=== PATIENT | female | born 1940 | race Caucasian/White ===

== ENCOUNTER 2022-12-29 01:23 | Inpatient (IN) | payer MEDICARE, SELFPAY ==
[2022-12-29] VITALS (14 sets, daily range): BP systolic 102–184; BP diastolic 54–86; PULSE 74–107; RESP 13–26; TEMP 36.3–37.3; O2SAT 94–100; BMI 25.3
--- NOTE | 2022-12-29 05:44 | PM.HP.1 ---
History of Present Illness History of Present Illness Date Patient Seen: 12/29/22 Chief complaint: HYDRONEPHROSIS Narrative: 82 y/o with PMH of COPD, GERD, HTN, Depression, transferred from another hospital with obstructing Lt ureteral stone, Lt [place]/Ureteronephrosis, to be seen by urologist. Complaining on nausea, abdominal pain. [facility] Medical History (Updated 12/29/22 @ 05:58 by Keith Mendez MD) COPD (chronic obstructive pulmonary disease) Depression GERD (gastroesophageal reflux disease) HTN (hypertension) Social History household members: significant other Smoking Status: Former smoker alcohol intake: current Comment: Unobtainable, hard of hearing Meds Home Medications and Allergies Home Medications Medication Instructions Recorded Confirmed Type albuterol sulfate 90 mcg/actuation 2 puff inhalation Q4H PRN 12/29/22 12/29/22 History aerosol inhaler (ProAir HFA) wheezing, shortness of breath aspirin 325 mg capsule 325 mg PO DAILY 12/29/22 12/29/22 History ipratropium 0.5 mg-albuterol 3 mg ml inhalation Q6H PRN Shortness Of 12/29/22 History (2.5 mg base)/3 mL nebulization Breath soln lisinopril 20 mg tablet 20 mg PO DAILY 12/29/22 12/29/22 History omeprazole 20 mg capsule,delayed 20 mg PO DAILY 12/29/22 12/29/22 History release venlafaxine 75 mg tablet 37.5 mg PO DAILY 12/29/22 12/29/22 History Allergies Allergy/AdvReac Type Severity Reaction Status Date / Time cephalexin [From Keflex] Allergy Unknown Verified 12/29/22 05:19 morphine Allergy Unknown Verified 12/29/22 05:19 oxycodone Allergy Unknown Verified 12/29/22 05:19 Sulfa (Sulfonamide Allergy Unknown Verified 12/29/22 05:19 Antibiotics) Review of Systems Review of Systems Narrative: Patient was only able to confirm that she has abdominal pain and nausea Severe hearing loss, possibly adverse effects of narcotics Exam Vital Signs (past 8 hours): - 12/29/22 02:59 Oxygen Delivery Method Nasal Cannula Oxygen Delivery Method Nasal Cannula Const Other: in no distress HENMT Other: hearing loss Resp Other: CTA Cardio Other: RRR Neuro Other: w/o focal motor deficits Extrem Other: w/o swelling Psych Other: confused Assessment & Plan Assessment and plan (1) Ureteral stone with hydronephrosis: Status: Acute Plan: - IVFs, Flomax - 4 mm, Lt UPJ with hydronephrosis - BMP and CBC in transferring hospital WNR with negative UA - NPO for potential procedure with urology, reason for transfer, will be seen by Dr Grant (2) HTN (hypertension): Status: Acute Plan: Lisinopril (3) COPD (chronic obstructive pulmonary disease): Status: Acute Plan: Albuterol, Advair (4) GERD (gastroesophageal reflux disease): Status: Acute Plan: omeprazole (5) Depression: Status: Acute Plan: Effexor
[2022-12-29] MEDS: HYDROMORPHONE 0.5 MG INJ IV (06:05)
[2022-12-29] MEDS: DEXTROSE 5%-0.45% NS 1,000 ML 75 ML IV (06:05)
[2022-12-29] MEDS: ONDANSETRON 4 MG/2 ML INJ IV (06:05)
--- NOTE | 2022-12-29 06:17 | PC.ADMIT ---
Addendum entered by Treva Bello R.N. 12/29/22 06:28: Received orders from hospitalist. Patient on D5 1/2 NS @ 75. NPO. Zofran and dilauded given for pain/ nausea. Zapata catheter placed per order. Original Note: [address] Admission Note: Patient admitted to AC unit at 03:40 from [facility]. Patient transported via BLS and transferred to bed using a slideboard. Patient A/O x 4, able to make needs known. Upon arrival patient was dry heaving with slight amount of emesis, reporting 8/10 pain. Patient at 97% on 2 L oxygen via nasal cannula, uses home oxygen @ 2L per baseline. Bed in low and locked position, call light within reach and bed alarm on. The patient,Tomasa Mello,82 y/o, was given written information regarding hospital policies, unit procedures and contact persons. Patient's smoking status: Former smoker. Vital Signs - 8 hr 12/29/22 02:59 Oxygen Delivery Method Nasal Cannula
--- NOTE | 2022-12-29 07:19 | P.HP_ITS ---
History of Present Illness History of Present Illness Date Patient Seen: 12/29/22 Chief complaint: HYDRONEPHROSIS Narrative: 82 y/o with PMH of COPD, GERD, HTN, Depression, transferred from another hospital with obstructing Lt ureteral stone, Lt [place]/Ureteronephrosis, to be seen by urologist. Complaining on nausea, abdominal pain. [facility] Medical History (Updated 12/29/22 @ 05:58 by Keith Mendez MD) COPD (chronic obstructive pulmonary disease) Depression GERD (gastroesophageal reflux disease) HTN (hypertension) Social History household members: significant other Smoking Status: Former smoker alcohol intake: current Meds Home Medications and Allergies Home Medications Medication Instructions Recorded Confirmed Type albuterol sulfate 90 mcg/actuation 2 puff inhalation Q4H PRN 12/29/22 12/29/22 History aerosol inhaler (ProAir HFA) wheezing, shortness of breath aspirin 325 mg capsule 325 mg PO DAILY 12/29/22 12/29/22 History ipratropium 0.5 mg-albuterol 3 mg 0.5 ml inhalation Q6H PRN 12/29/22 12/29/22 History (2.5 mg base)/3 mL nebulization Shortness Of Breath soln lisinopril 20 mg tablet 20 mg PO DAILY 12/29/22 12/29/22 History omeprazole 20 mg capsule,delayed 20 mg PO DAILY 12/29/22 12/29/22 History release venlafaxine 75 mg tablet 37.5 mg PO DAILY 12/29/22 12/29/22 History Allergies Allergy/AdvReac Type Severity Reaction Status Date / Time cephalexin [From Keflex] Allergy Unknown Verified 12/29/22 05:19 morphine Allergy Unknown Verified 12/29/22 05:19 oxycodone Allergy Unknown Verified 12/29/22 05:19 Sulfa (Sulfonamide Allergy Unknown Verified 12/29/22 05:19 Antibiotics) Review of Systems Review of Systems Narrative: All other systems reviewed with the patient and are negative unless otherwise stated. Exam Vital Signs (past 8 hours): - 12/29/22 02:59 Oxygen Delivery Method Nasal Cannula Oxygen Delivery Method Nasal Cannula Const Other: in no distress HENMT Other: hearing loss Resp Other: CTA Cardio Other: RRR Neuro Other: w/o focal motor deficits Extrem Other: w/o swelling Psych Other: confused Objective Labs 12/29/22 07:04 12/29/22 07:04 Assessment & Plan Assessment and plan (1) Ureteral stone with hydronephrosis: Status: Acute Plan: - IVFs, Flomax - 4 mm, Lt UPJ with hydronephrosis - BMP and CBC in transferring hospital WNR with negative UA - NPO for stone lithotripsy with Dr. Salas (2) HTN (hypertension): Status: Acute Plan: Lisinopril (3) COPD (chronic obstructive pulmonary disease): Status: Acute Plan: Albuterol, Advair On 2L chronic O2. (4) GERD (gastroesophageal reflux disease): Status: Acute Plan: omeprazole (5) Depression: Status: Acute Plan: Effexor Plan Code status is full code. DVT prophylaxis with SCDs. Proxy is fabián Mello. I have reviewed home meds and used all available resources to reconcile the home meds. Case discussed with ED physician/APC and patient will be admitted to the hospitalist service for further workup and management. This patient will be admitted as inpatient and will require greater than 2 midnights of hospital time to treat impacted renal stone.
[2022-12-29 07:20] LABS: INR 1.1 (0.9-1.3); Prothrombin Time 12.3 SECONDS (10.1-12.7)
[2022-12-29] MEDS: PANTOPRAZOLE DR 20 MG TABLET PO (07:22)
[2022-12-29 07:23] LABS: PTT Partial Thromboplastin Tim 34 SECONDS (26-36)
[2022-12-29 07:24] LABS: BUN Creatinine Ratio 17.4 (6-22); Blood Urea Nitrogen 19 mg/dL (7-17); Calcium 9.3 mg/dL (8.4-10.2); Carbon Dioxide 30 mmol/L (22-32); Chloride 98 mmol/L (98-107); Estimated Glomerular Filt Rate 51 mL/min (>60); Glucose 178 mg/dL (80-110); HEMOLYSIS 26 (0-50); Potassium 4.5 mmol/L (3.4-5.1); Sodium 136 mmol/L (137-145)
[2022-12-29 07:27] LABS: Add Manual Diff / Slide Review NO; Basophils Absolute Auto 0 /uL (0-100); Basophils Percent Auto 0.2 % (0-2); Eosinophils Absolute Auto 0 /uL (0-450); Hematocrit 40.9 % (36-46); Hemoglobin 13.6 g/dL (12.0-16.0); Lymphocytes Absolute Auto 700 /uL (1100-4500); Lymphocytes Percent Auto 7.1 % (25-40); Mean Corpuscular HGB Conc 33.2 % (30-36); Mean Corpuscular Hemoglobin 29.4 PG (26-34); Mean Corpuscular Volume 88.6 fL (80-100); Monocytes Absolute Auto 700 /uL (0-900); Monocytes Percent Auto 7.3 % (3-14); Neutrophils Absolute Auto 8200 /uL (1500-7000); Neutrophils Percent Auto 85.4 % (50-75); Platelet Count 232 X10^3/uL (150-400); Red Blood Cell Count 4.61 X10^6/uL (4.0-5.2); Red Cell Distribution Width 13.7 % (11.6-14.8); White Blood Cell Count 9.6 X10^3/uL (4.5-11.0)
[2022-12-29 07:43] LABS: Magnesium 1.9 mg/dL (1.6-2.3)
[2022-12-29 08:37] LABS: Appearance Urine UA CLEAR; Bilirubin Urine UA NEGATIVE (NEGATIVE); Color Urine UA YELLOW; Glucose Urine UA NEGATIVE (Negative); Ketones Urine UA NEGATIVE (NEGATIVE); Leukocyte Esterase Urine UA NEGATIVE (NEGATIVE); Nitrite Urine UA NEGATIVE (Negative); Occult Blood Urine UA 3+ (Negative); Protein Urine UA 1+ (Negative); Urobilinogen Urine UA 0.2 E.U./dL (0.2)
[2022-12-29 08:38] LABS: pH Urine UA 7.5 (4.5-8.0)
[2022-12-29 09:51] LABS: Amorphous Sediment Urine 2+; Bacteria Urine Few (2-10); Culture Indicated Urine Specimen Cultured; RBC Urine 30-100/HPF (0-5/HPF); Squamous Epithelial Cell Urine None Seen (0-5/HPF); WBC Urine 1-5/HPF (0-5/HPF)
[2022-12-29] MEDS: SODIUM CHLORIDE 0.9% 1,000 ML 125 ML IV (10:22)
--- NOTE | 2022-12-29 10:24 | CM.DANOTE ---
Initial DCP Assessment Note Pt is a 82 yo female, resident of [place], transferred from [facility] for obstructing ureteral stone, slated for urology consult today, possible need for stent (?) PCP: Did not assess Payer: [facility] Reviewed chart, met w/patient to introduce self and role. Patient is mostly indp at baseline, says she has her SO [place] assist w/higher ADLs. Patient and SO are not but have been together for 32 years. Patient anticipates discharging home w/assist from SO and denies needs from this CODING AND REIMBURSEMENT SPECIALIST. Patient awaiting a visit from Urologist to discuss next steps in medical plan of care. No barriers identified at this time to patient's safe discharge home w/family to assist; close outpatient f/u recommended. CM team will plan to follow closely in case any DC needs or concerns arise. ART Ramirez Discharge Planning/Care Management CM Discharge Assessment Start: 12/29/22 10:20 Freq: Status: Active Protocol: Document 12/29/22 10:21 ALIS (Rec: 12/29/22 10:23 ALIS [id number]) Discharge Planning Assessment Assigned Medical Coding Technician ART Francois DPOA/Assigned Designee Name Kolton S.O. (not legally ) Contact Information [phone] Advance Directives? No History Provided By Patient,Medical Record Prior Living Arrangements Apartment/Condo Household Members significant other Type of transporation used prior to Drives own vehicle admit Willing to Return to Facility? No Independent with ADL's Yes: uses FWW, needs assist with higher ADLs Is patient alert and oriented? Yes Needs Assistance With Bathing,Home Chores / Shopping Comment SO assists- CGA/SBA for showers Comment Patient plans to return home w /S.O. Kolton upon discharge Barriers to Discharge No Comment None identified at this time Discharge Plan Home Transportation Arrangement S.O. Referrals Initiated None needed
[2022-12-29] MEDS: KETOROLAC 30 MG/ML VIAL IV (10:29)
--- NOTE | 2022-12-29 11:42 | DI.RAD.S_ITS ---
PROCEDURE: XR KUB INDICATIONS: assess renal stone TECHNIQUE: One view of the abdomen acquired. COMPARISON: [facility], CT, CT KUB, 12/28/2022, 18:24. FINDINGS: Surgical changes and devices: None. Bowel: Nonspecific nonobstructive bowel gas pattern. Soft tissues: No suspicious calcifications. No obvious radiographic renal stone. A small pelvic calcification is seen Bones: No suspicious bony lesions. IMPRESSION: There is a small pelvic calcification, indeterminate for a UVJ stone as seen on prior CT, bladder stone, or phlebolith. No obvious renal stone. Dictated by: Natanael Gale M.D. on 12/29/2022 at 12:33 Approved by: Natanael Gale M.D. on 12/29/2022 at 12:34
[2022-12-29] MEDS: ALBUTEROL/IPRATROPIUM 3 ML AMPUL INH ×3 (12:27→20:33)
--- NOTE | 2022-12-29 12:45 | DI.CT.S_ITS ---
PROCEDURE: CT PEL WO CON INDICATIONS: check for UVJ stone TECHNIQUE: Noncontrast 3 mm axial sections acquired through the bony pelvis, with coronal and sagittal reformatting. COMPARISON: [facility], CT, CT KUB, 12/28/2022, 18:24. FINDINGS: Image quality: Good Lower abdomen: Colonic diverticulosis. No abscess or ascites. No bowel obstruction lower abdomen. Indeterminate small liver lesions, partially seen. Possibly cysts. Duodenal diverticulum. Bladder: Under distended difficult to evaluate with Zapata. The left UVJ stone is still present. Upstream ureter dilation and mild hydronephrosis persists. There is also renal edema. Nonobstructing right renal calculi also partially seen. Reproductive organs: Hysterectomy. Rectum: Unremarkable Vessels and lymph nodes: Atherosclerotic calcifications. No pathologic lymph nodes by size criteria. Pelvic wall: Unremarkable Bones: No acute or suspicious osseous finding. There are degenerative changes. IMPRESSION: Left UVJ stone, hydronephrosis and hydroureter persist. There is persistent surrounding fat stranding and edema. Nonobstructing right renal calculi also partially seen. Dictated by: Natanael Gale M.D. on 12/29/2022 at 15:33 Approved by: Natanael Gale M.D. on 12/29/2022 at 15:36
[2022-12-29] MEDS: LACTATED RINGERS 1,000 ML 150 ML IV (15:50)
--- NOTE | 2022-12-29 15:52 | SUR.OPER ---
Lithotomy on padded OR bed, head on pillow, arms secured on padded arm boards at <90 degrees abduction. Legs secured in padded yellow fins stirrups.
--- NOTE | 2022-12-29 16:31 | PM.PREOP ---
Pre-operative Note Interval Note History & Physical reviewed/Exam performed by Physician: Yes Changes to H&P: No
--- NOTE | 2022-12-29 16:35 | P.CONS_ITS ---
History of Present Illness Consult details Date Patient Seen: 12/29/22 Time Patient Seen: 16:10 Chief complaint: HYDRONEPHROSIS Reason for consult: Obstructing left ureteral calculus Narrative: Tomasa is an 82-year-old woman who was experiencing her usual health until morning of 12/28/2022. She use the restroom and following that, experienced acute and severe left flank and abdominal pain. He then became nauseated and at that point presented to the nearest emergency department. Evaluation there included performance of a CT KUB that identified obstructing 4 mm left ureterovesical junction calculus and associated proximal moderate hydronephrosis. Nausea and vomiting were difficult to control as was pain. She was transferred to [facility], inpatient hospitalist service during the marketing operations manager hours of 12/29/2022. I was asked to consult on the patient for any further evaluations and management. She reported complete resolution of her pain that a proximally 12:30 p.m. today. Although she had a Zapata catheter indwelling upon transfer from the outside hospital and unlikely she could have passed the stone it may have moved from the distal ureter into the bladder lumen proper. Noncontrast CT of the pelvis indeed identified the index calculus in unchanged position. Due to lack of interval progression and continued issues with pain management as well as management of nausea and vomiting discussion regarding interventional options were undertaken with her at the bedside today. Meds Home Medications and Allergies Home Medications Medication Instructions Recorded Confirmed Type albuterol sulfate 90 mcg/actuation 2 puff inhalation Q4H PRN 12/29/22 12/29/22 History aerosol inhaler (ProAir HFA) wheezing, shortness of breath aspirin 325 mg capsule 325 mg PO DAILY 12/29/22 12/29/22 History ipratropium 0.5 mg-albuterol 3 mg 0.5 ml inhalation Q6H PRN 12/29/22 12/29/22 History (2.5 mg base)/3 mL nebulization Shortness Of Breath soln lisinopril 20 mg tablet 20 mg PO DAILY 12/29/22 12/29/22 History omeprazole 20 mg capsule,delayed 20 mg PO DAILY 12/29/22 12/29/22 History release venlafaxine 75 mg tablet 37.5 mg PO DAILY 12/29/22 12/29/22 History Allergies Allergy/AdvReac Type Severity Reaction Status Date / Time cephalexin [From Keflex] Allergy Unknown Verified 12/29/22 05:19 morphine Allergy Unknown Verified 12/29/22 05:19 oxycodone Allergy Unknown Verified 12/29/22 05:19 Sulfa (Sulfonamide Allergy Unknown Verified 12/29/22 05:19 Antibiotics) Exam Vital Signs (past 8 hours): - 12/29/22 08:45 12/29/22 11:26 12/29/22 13:52 Temperature 97.4 F L Pulse Rate 107 H Respiratory Rate 18 18 Blood Pressure 112/59 L Pulse Oximetry 94 95 Oxygen Delivery Method Nasal Cannula Oxygen Flow Rate 2 2 12/29/22 15:38 Temperature 98.9 F Pulse Rate 99 H Respiratory Rate 17 Blood Pressure 102/65 Pulse Oximetry 99 Oxygen Delivery Method Nasal Cannula Oxygen Flow Rate 2 Oxygen Delivery Method Nasal Cannula Oxygen Flow Rate 2 Objective Labs 12/29/22 07:04 12/29/22 07:04 Labs: Laboratory Results - last 24 hr 12/29/22 12/29/22 12/29/22 07:04 07:04 07:04 WBC 9.6 RBC 4.61 Hgb 13.6 Hct 40.9 MCV 88.6 MCH 29.4 MCHC 33.2 RDW 13.7 Plt Count 232 Neut % (Auto) 85.4 H Lymph % (Auto) 7.1 L [place] % (Auto) 7.3 Eos % (Auto) 0.0 L Baso % (Auto) 0.2 Neut # (Auto) 8200 H Lymph # (Auto) 700 L [place] # (Auto) 700 Eos # (Auto) 0 Baso # (Auto) 0 PT 12.3 INR 1.1 APTT 34 Sodium 136 L Potassium 4.5 Chloride 98 Carbon Dioxide 30 BUN 19 H Creatinine 1.09 H Estimated GFR 51 L BUN/Creatinine Ratio 17.4 Glucose 178 H Calcium 9.3 Magnesium Urine Color Urine Appearance Urine pH Ur Specific Seibert Urine Protein Urine Glucose (UA) Urine Ketones Urine Occult Blood Urine Nitrate Urine Bilirubin Urine Urobilinogen Ur Leukocyte Esterase Urine RBC Urine WBC Ur Squamous Epith Cells Amorphous Sediment Urine Bacteria Ur Culture Indicated? 12/29/22 12/29/22 07:04 08:33 WBC RBC Hgb Hct MCV MCH MCHC RDW Plt Count Neut % (Auto) Lymph % (Auto) [place] % (Auto) Eos % (Auto) Baso % (Auto) Neut # (Auto) Lymph # (Auto) [place] # (Auto) Eos # (Auto) Baso # (Auto) PT INR APTT Sodium Potassium Chloride Carbon Dioxide BUN Creatinine Estimated GFR BUN/Creatinine Ratio Glucose Calcium Magnesium 1.9 Urine Color Yellow Urine Appearance Clear Urine pH 7.5 Ur Specific [place] 1.020 Urine Protein 1+ H Urine Glucose (UA) Negative Urine Ketones Negative Urine Occult Blood 3+ H Urine Nitrate Negative Urine Bilirubin Negative Urine Urobilinogen 0.2 Ur Leukocyte Esterase Negative Urine RBC 30-100/hpf H Urine WBC 1-5/hpf Ur Squamous Epith Cells None seen Amorphous Sediment 2+ Urine Bacteria Few (2-10) H Ur Culture Indicated? Specimen cultured [facility] Medical History COPD (chronic obstructive pulmonary disease) Depression GERD (gastroesophageal reflux disease) HTN (hypertension) Social History household members: significant other Tobacco & Substance Use Smoking Status: Former smoker alcohol intake: current Assessment & Plan Assessment & Plan narrative: Assessment: 1. 4 mm obstructing left ureterovesical junction calculus. 2. Unremitting left renal colic. Plan: 1. Discussion and informed consent today obtained for CYSTOSCOPY/LEFT URETEROSCOPIC LASER LITHOTRIPSY/POSSIBLE LEFT URETERAL STENT PLACEMENT..
--- NOTE | 2022-12-29 16:43 | PC.NURSE ---
Pt resting quietly in morning. Med w/ketorolac w/good results. Zapata cath patent clear yellow urine. To CT scan prior to OR [facility] condition.
[2022-12-29] MEDS: CIPROFLOXACIN 400 MG/200 ML PIGGYBACK 200 MG IV (16:45)
--- NOTE | 2022-12-29 17:06 | SUR.OPER ---
Lithotomy on padded OR bed, head on pillow, arms secured on padded arm boards at <90 degrees abduction. Legs secured in padded yellow fins stirrups.
--- NOTE | 2022-12-29 17:33 | PM.OP.1 ---
Operative Date/Time/Diagnoses Date of procedure: 12/29/22 Time of procedure: 17:34 Pre-op diagnosis: 1. Obstructing 4 mm left ureterovesical junction calculus. 2. Intractable left renal colic. Post-op diagnosis: same Procedure & Clinicians Procedure: 1. Cystoscopy/left ureteroscopic laser lithotripsy. Same procedure as scheduled: Yes Indications: 1. Obstructing 4 mm left ureterovesical junction calculus. 2. Intractable left renal colic. Surgeon: Haider Salas Click Yes if Unassisted: Yes Anesthesia Type: General Operative Notes Findings: 1. Urethra-small mildly inflamed urethral caruncle. Associated moderate atrophic vaginitis. 2. Bladder-Normal position of ureteral orifices bilaterally. Diameter of ureteral orifices were very small. The left orifice just accommodated the diameter of the 0.35 hybrid ureteral guidewire. Trace to 1+ trabeculation. 3. Left ureter-index calculus identified in expected position and on changed compared to preoperative imaging. Closure Type: not applicable Specimen(s): other (Stone fragments from left ureter.) Estimated Blood Loss (mL): 1 Blood products transfused: none Procedure in detail: The patient was positioned in supine and was administered general anesthesia. She was then repositioned in semi-lithotomy in the lower abdomen, genitalia, and groin were then prepped and draped in sterile fashion. The 22 Malagasy panendoscope was then passed the lower urinary tract with findings as described above. A 0.35 hybrid guidewire was then advanced through the working channel of the ramirez endoscope and then advanced the left ureteral orifice and advanced proximally under direct and fluoroscopic guidance. The panendoscope was then backloaded off the ureteral guidewire and the semi rigid ureteral scope was then prepared advanced in lower urinary tract and then attempts were made to advance into the left ureteral orifice but due to the small diameter the orifice the semi rigid ureteral scope could not be passed with reasonable attempt. Therefore the ureteroscope was temporarily removed. And the ramirez endoscope was front loaded onto the 0.35 ureteral guidewire. Next, a 12 Malagasy by 6 cm length balloon dilating catheter was advanced over the hybrid guidewire and positioned across the left ureterovesical junction. The balloon was then inflated 18 atmospheres and held in position for 5 minutes. It was then deflated and backloaded off the hybrid guidewire. A 200 micron laser fiber was then requested. All operating room personnel and patient were fitted with laser safety eyewear. The semi rigid ureteral scope was then advanced the lower urinary tract and advanced in the left ureteral orifice under direct visualization. It was then advanced in the left ureteral orifice and advanced proximally where the stone was then encountered. Laser lithotripsy was then commenced with excellent resultant stone fragmentation. Using a combination of hydrostatic and mechanical agitation the fragments were cleared from the ureteral lumen proper. Semi rigid ureteral scope was then removed. The panendoscope was then reintroduced the bladder was filled twice and tiny stone fragments with attached clot were recovered and submitted to the laboratory for routine stone analysis. The bladder was then empty completely and the panendoscope was removed a final time. The patient was then repositioned in supine, was awakened, then transported recovery in stable condition. Complications: none Post-operative Condition: stable Disposition: PACU Plan for aftercare: Discharge to home.
--- NOTE | 2022-12-29 17:45 | P.DS_ITS ---
History of Present Illness History of Present Illness Date Patient Seen: 12/29/22 Time Patient Seen: 17:45 Date of Onset of Symptoms: 12/28/22 Chief complaint: HYDRONEPHROSIS Narrative: Patient was admitted via transfer from outside emergency department to [facility], inpatient hospitalist service in the early childhood education instructor hours of 12/29/2022 for further evaluation and management of unremitting left renal colic that began early in the morning on 12/28/2022. She failed to pass the stone successfully. She reported at 12:30 p.m. that her pain and completely subsided and was anxious to go home. Noncontrast CT of the pelvis identified the index calculus as being unchanged in position compared to outpatient CT KUB performed 12/28/2022. Discharge Providers Provider Date of admission: 12/29/22 01:23 Discharge Date: 12/29/22 Consults: 12/29/22 07:18 Consult to Urology Routine Comment: Consulting Provider: Haider Salas Reason for consultation: L obstructing renal stone Has provider been notified: Yes Discharge provider: Haider Salas MD Summary Hospital Course Discharge Diagnosis: 1. Intractable left renal colic. 2. Obstructing 4 mm left distal ureteral calculus. Hospital Course: The patient was admitted in the early childhood education instructor hours of 12/29/2022 further evaluation and management of intractable left renal colic secondary to identified 4 mm left ureterovesical junction calculus at outside emergency department CT KUB. She failed to progress clinically. At 12:30 p.m. today she reported to the hospitalist staff that she was no longer in pain and was anxious to go home. A CT of pelvis without contrast subsequently performed identified unchanged size and position of the index calculus with associated hydronephrosis. Urology consultation was requested. A length the explanation and informed consent for left ureteroscopic laser lithotripsy was then conducted. The patient was subsequently brought to the operating room and underwent same procedure without incident or complication. The early postop. She was stable for discharge. Exam Vital Signs (past 8 hours): - 12/29/22 11:26 12/29/22 13:52 12/29/22 15:38 Temperature 97.4 F L 98.9 F Pulse Rate 107 H 99 H Respiratory Rate 18 18 17 Blood Pressure 112/59 L 102/65 Pulse Oximetry 95 99 Oxygen Delivery Method Nasal Cannula Oxygen Flow Rate 2 2 Oxygen Delivery Method Nasal Cannula Oxygen Flow Rate 2 Narrative Exam Narrative: Not repeated. Objective Labs 12/29/22 07:04 12/29/22 07:04 Labs: Laboratory Results - last 24 hr 12/29/22 12/29/22 12/29/22 07:04 07:04 07:04 WBC 9.6 RBC 4.61 Hgb 13.6 Hct 40.9 MCV 88.6 MCH 29.4 MCHC 33.2 RDW 13.7 Plt Count 232 Neut % (Auto) 85.4 H Lymph % (Auto) 7.1 L [place] % (Auto) 7.3 Eos % (Auto) 0.0 L Baso % (Auto) 0.2 Neut # (Auto) 8200 H Lymph # (Auto) 700 L [place] # (Auto) 700 Eos # (Auto) 0 Baso # (Auto) 0 PT 12.3 INR 1.1 APTT 34 Sodium 136 L Potassium 4.5 Chloride 98 Carbon Dioxide 30 BUN 19 H Creatinine 1.09 H Estimated GFR 51 L BUN/Creatinine Ratio 17.4 Glucose 178 H Calcium 9.3 Magnesium Urine Color Urine Appearance Urine pH Ur Specific [place] Urine Protein Urine Glucose (UA) Urine Ketones Urine Occult Blood Urine Nitrate Urine Bilirubin Urine Urobilinogen Ur Leukocyte Esterase Urine RBC Urine WBC Ur Squamous Epith Cells Amorphous Sediment Urine Bacteria Ur Culture Indicated? 12/29/22 12/29/22 07:04 08:33 WBC RBC Hgb Hct MCV MCH MCHC RDW Plt Count Neut % (Auto) Lymph % (Auto) [place] % (Auto) Eos % (Auto) Baso % (Auto) Neut # (Auto) Lymph # (Auto) [place] # (Auto) Eos # (Auto) Baso # (Auto) PT INR APTT Sodium Potassium Chloride Carbon Dioxide BUN Creatinine Estimated GFR BUN/Creatinine Ratio Glucose Calcium Magnesium 1.9 Urine Color Yellow Urine Appearance Clear Urine pH 7.5 Ur Specific [place] 1.020 Urine Protein 1+ H Urine Glucose (UA) Negative Urine Ketones Negative Urine Occult Blood 3+ H Urine Nitrate Negative Urine Bilirubin Negative Urine Urobilinogen 0.2 Ur Leukocyte Esterase Negative Urine RBC 30-100/hpf H Urine WBC 1-5/hpf Ur Squamous Epith Cells None seen Amorphous Sediment 2+ Urine Bacteria Few (2-10) H Ur Culture Indicated? Specimen cultured [facility] Medical History COPD (chronic obstructive pulmonary disease) Depression GERD (gastroesophageal reflux disease) HTN (hypertension) Social History household members: significant other Smoking Status: Former smoker alcohol intake: current Discharge Assessment & Plan Assessment and Plan Assessment: 1. Stable status post left ureteroscopic laser lithotripsy for obstructing 4 mm left ureterovesical junction calculus. Plan of Treatment: 1. Discharge to home. 2. Follow-up as outpatient in the [facility]. Discharge Plan Discharge Plan Patient Disposition: Home Provider Discharge Comment: Please contact the [facility] to schedule your follow-up appointment. Discharge orders & Medications Prescriptions: Continued albuterol sulfate [ProAir HFA] 90 mcg/actuation HFA aerosol inhaler 2 puff inhalation Q4H PRN (Reason: wheezing, shortness of breath) lisinopril 20 mg tablet 20 mg PO DAILY ipratropium-albuterol 0.5 mg-3 mg(2.5 mg base)/3 mL solution for nebulization 0.5 ml inhalation Q6H PRN (Reason: Shortness Of Breath) Rx Instructions: o.5-2.5mg/3mL Q6H PRN omeprazole 20 mg capsule,delayed release(DR/EC) 20 mg PO DAILY venlafaxine 75 mg tablet 37.5 mg PO DAILY aspirin 325 mg Capsule 325 mg PO DAILY Diet/Activity/Treatments Diet: Diet as Tolerated Activity: No restrictions beginning 12/30/2022 Skin/Wound/Dressing Care Report to your healthcare provider any signs of infection, such as:: chills, fever, night sweats, unusual drainage and unusual redness Visit Report/Discharge Packet Instructions: DI for Cystoscopy Stand Alone Forms: Stroke Signs & Symptoms, Surgery Discharge
[2022-12-29] MEDS: ACETAMINOPHEN IV 1,000 MG/100 ML VIAL 400 MG IV (17:55)
[2022-12-29] MEDS: KETOROLAC 30 MG/ML VIAL 15 MG IV (20:19)
[2022-12-30 04:15] VITALS: BP 107/63; PULSE 81; RESP 16; TEMP 36.2; O2SAT 93
[2022-12-30] MEDS: PANTOPRAZOLE DR 20 MG TABLET PO (05:00)
--- NOTE | 2022-12-30 07:30 | PM.DS.1 ---
History of Present Illness History of Present Illness Chief complaint: HYDRONEPHROSIS Narrative: 82 y/o with PMH of COPD, GERD, HTN, Depression, transferred from another hospital with obstructing Lt ureteral stone, Lt [place]/Ureteronephrosis, to be seen by urologist. Complaining on nausea, abdominal pain. Discharge Providers Provider Date of admission: 12/29/22 01:23 Discharge Date: 12/30/22 Consults: 12/29/22 07:18 Consult to Urology Routine Comment: Consulting Provider: Haider Salas Reason for consultation: L obstructing renal stone Has provider been notified: Yes Discharge provider: Rhett Painter DO Summary Hospital Course Discharge Diagnosis: 1. Intractable left renal colic. 2. Obstructing 4 mm left distal ureteral calculus. Hospital Course: The patient was admitted in the development technical lead hours of 12/29/2022 further evaluation and management of intractable left renal colic secondary to identified 4 mm left ureterovesical junction calculus at outside emergency department CT KUB. She failed to progress clinically. At 12:30 p.m. today she reported to the hospitalist staff that she was no longer in pain and was anxious to go home. A CT of pelvis without contrast subsequently performed identified unchanged size and position of the index calculus with associated hydronephrosis. Urology consultation was requested. A length the explanation and informed consent for left ureteroscopic laser lithotripsy was then conducted. The patient was subsequently brought to the operating room and underwent same procedure without incident or complication. She will f/up in urology clinic. Exam Vital Signs (past 8 hours): - 12/30/22 04:15 Temperature 97.1 F L Pulse Rate 81 Respiratory Rate 16 Blood Pressure 107/63 Pulse Oximetry 93 Oxygen Flow Rate 2 Oxygen Delivery Method Nasal Cannula Oxygen Flow Rate 2 Const Other: in no distress HENMT Other: hearing loss Resp Other: CTA Cardio Other: RRR Neuro Other: w/o focal motor deficits Extrem Other: w/o swelling Psych Other: confused Objective Labs 12/29/22 07:04 12/29/22 07:04 Labs: Laboratory Results - last 24 hr 12/29/22 12/29/22 07:04 08:33 Magnesium 1.9 Urine Color Yellow Urine Appearance Clear Urine pH 7.5 Ur Specific [place] 1.020 Urine Protein 1+ H Urine Glucose (UA) Negative Urine Ketones Negative Urine Occult Blood 3+ H Urine Nitrate Negative Urine Bilirubin Negative Urine Urobilinogen 0.2 Ur Leukocyte Esterase Negative Urine RBC 30-100/hpf H Urine WBC 1-5/hpf Ur Squamous Epith Cells None seen Amorphous Sediment 2+ Urine Bacteria Few (2-10) H Ur Culture Indicated? Specimen cultured [facility] Medical History COPD (chronic obstructive pulmonary disease) Depression GERD (gastroesophageal reflux disease) HTN (hypertension) Social History household members: significant other Smoking Status: Former smoker alcohol intake: current Discharge Assessment & Plan Assessment and Plan Assessment: 1. Stable status post left ureteroscopic laser lithotripsy for obstructing 4 mm left ureterovesical junction calculus. Plan of Treatment: 1. Discharge to home. 2. Follow-up as outpatient in the [facility]. Discharge Plan Discharge Plan Patient Disposition: Home Provider Discharge Comment: Please contact the [facility] to schedule your follow-up appointment. Discharge orders & Medications Prescriptions: Continued albuterol sulfate [ProAir HFA] 90 mcg/actuation HFA aerosol inhaler 2 puff inhalation Q4H PRN (Reason: wheezing, shortness of breath) lisinopril 20 mg tablet 20 mg PO DAILY ipratropium-albuterol 0.5 mg-3 mg(2.5 mg base)/3 mL solution for nebulization 0.5 ml inhalation Q6H PRN (Reason: Shortness Of Breath) Rx Instructions: o.5-2.5mg/3mL Q6H PRN omeprazole 20 mg capsule,delayed release(DR/EC) 20 mg PO DAILY venlafaxine 75 mg tablet 37.5 mg PO DAILY aspirin 325 mg Capsule 325 mg PO DAILY Diet/Activity/Treatments Diet: Diet as Tolerated Activity: No restrictions beginning 12/30/2022 Skin/Wound/Dressing Care Report to your healthcare provider any signs of infection, such as:: chills, fever, night sweats, unusual drainage and unusual redness Visit Report/Discharge Packet Instructions: DI for Cystoscopy Stand Alone Forms: Stroke Signs & Symptoms, Surgery Discharge
[2022-12-30 08:00] VITALS: BP 133/80; PULSE 99; RESP 17; TEMP 36.1; O2SAT 98
[2022-12-30 08:40] VITALS: PULSE 91; RESP 16; O2SAT 97
[2022-12-30] MEDS: ALBUTEROL/IPRATROPIUM 3 ML AMPUL INH (08:40)
[2022-12-30] MEDS: VENLAFAXINE 37.5 MG TABLET PO (08:49)
[2022-12-30] MEDS: TAMSULOSIN 0.4 MG CAPSULE PO (08:49)
--- NOTE | 2022-12-30 10:14 | PC.NURSE ---
Patient is being discharged home and s.o. is coming from [place] to pick her up. She is eating breakfast and is happy to be going.
--- NOTE | 2022-12-30 12:08 | CM.DPNOTE ---
DC Note Discharge home today without needs from this CM team, close outpatient follow up recommended. ALIS
[2023-01-04 15:24] LABS: Ca oxalate monohydr 100 % (.); Size 2x1 mm (.)
== END 2022-12-30 12:35 | disposition home or self-care (01) | DRG 694 ==
PROVIDERS: Specialist; Student in an Organized Health Care Education/Training Program; Admitting Provider Internal Medicine; Referring Provider Internal Medicine; Visit Provider Internal Medicine
PROC: 0TC78ZZ Extirpation of Matter from Left Ureter, Via Natural or Artificial Opening Endoscopic (ICD-10-PCS; principal; 2022-12-29 14:15)
DX: N13.2 Hydronephrosis with renal and ureteral calculous obstruction (principal); I10 Essential (primary) hypertension; K21.9 Gastro-esophageal reflux disease without esophagitis; F32.A Depression, unspecified; J44.9 Chronic obstructive pulmonary disease, unspecified; Z87.891 Personal history of nicotine dependence
CPT/HCPCS: 36415; 52353; 72192; 74018; 76000; 80048; 81001; 82365; 83735; 85025; 85610; 85730; 87086; 94640; 94762; 99222; A9270; J0131; J0330; J0744; J1100; J1170; J1885; J2405; J2704; J3010